=== PATIENT | male | born 1995 | race Caucasian/White ===

== ENCOUNTER 2019-06-15 08:36 | Emergency (ER) | payer OTHER ==
[2019-06-15] MEDS: DIPHTH/TET/ACEL PERTUSS (ADULT) 0.5 ML VIAL IM* (08:57)
== END 2019-06-15 10:45 | disposition home or self-care (01) ==
LOC: E/R 08:36
DX: S02.80XA Fracture of other specified skull and facial bones, unspecified side, initial encounter for closed fracture (principal); R40.2142 Coma scale, eyes open, spontaneous, at arrival to emergency department; R40.2362 Coma scale, best motor response, obeys commands, at arrival to emergency department; R40.2252 Coma scale, best verbal response, oriented, at arrival to emergency department; S01.01XA Laceration without foreign body of scalp, initial encounter; F17.210 Nicotine dependence, cigarettes, uncomplicated; Y04.0XXA Assault by unarmed brawl or fight, initial encounter; Z23 Encounter for immunization
CPT/HCPCS: 12001; 70450; 70486; 72125; 73090; 73110-LT; 90471; 90715; 99284-25

== ENCOUNTER 2019-06-18 10:57 | Emergency (ER) | payer OTHER ==
[2019-06-18] MEDS: LIDOCAINE 1% (MPF) 5 ML VIAL INJ (12:23)
== END 2019-06-18 13:15 | disposition home or self-care (01) ==
LOC: FTE 13:15
DX: S61.211A Laceration without foreign body of left index finger without damage to nail, initial encounter (principal); W26.0XXA Contact with knife, initial encounter; Y92.9 Unspecified place or not applicable; Z87.891 Personal history of nicotine dependence
CPT/HCPCS: 12001; 99283-25

== ENCOUNTER 2019-06-25 07:09 | Emergency (ER) | payer OTHER ==
[2019-06-25] MEDS: CEFTRIAXONE 1 GM INJ IM (07:45)
[2019-06-25] MEDS: LIDOCAINE 1% (MPF) 5 ML VIAL INJ (07:45)
== END 2019-06-25 08:10 | disposition home or self-care (01) ==
LOC: FTE 07:09
DX: L53.9 Erythematous condition, unspecified (principal)
CPT/HCPCS: 96372; 99284-25; J0696